=== PATIENT | male | born 1985 | race Hispanic/Latino ===

== ENCOUNTER 2018-02-25 16:00 | Outpatient (CLI) | payer OTHER | END 2018-02-25 16:01 | disposition home or self-care (01) | LOC: SLEEPLAB 16:00 | PROVIDERS: ATTEND Family Medicine | DX: G47.33 Obstructive sleep apnea (adult) (pediatric) (principal); R53.83 Other fatigue; E66.9 Obesity, unspecified; R06.83 Snoring; I10 Essential (primary) hypertension; Z68.41 Body mass index [BMI] 40.0-44.9, adult | CPT/HCPCS: 95806 ==

== ENCOUNTER 2018-09-03 22:08 | Emergency (ER) | payer OTHER ==
--- NOTE | 2018-09-03 22:28 | RAD ---
RIGHT THUMB 3 VIEWS: HISTORY: Right thumb pain, injury FINDINGS: No fracture or dislocation is identified.
== END 2018-09-03 23:55 | disposition home or self-care (01) ==
LOC: ERS 22:08
DX: M79.644 Pain in right finger(s) (principal); I10 Essential (primary) hypertension; E66.9 Obesity, unspecified; G47.30 Sleep apnea, unspecified; Z79.899 Other long term (current) drug therapy

== ENCOUNTER 2020-11-09 10:16 | Emergency (ER) | payer OTHER ==
[2020-11-09] MEDS ORDERED: diphenhydrAMINE 50 MG/ML VIAL ONE (12:04)
[2020-11-09] MEDS ORDERED: Metoclopramide HCl 10 MG/2 ML VIAL ONE (12:04)
[2020-11-09] MEDS ORDERED: Ondansetron PF 4 MG/2 ML Vial ONE (12:04)
[2020-11-09] MEDS ORDERED: methylPREDNISolone Sod Succ/PF 125 MG/2 ML VIAL ONE (12:04)
[2020-11-09] MEDS ORDERED: Ketorolac Tromethamine 30 MG/ML VIAL ONE (13:02)
[2020-11-09 13:06] LABS: ALT (SGPT) 24 U/L (8-55); AST (SGOT) 18 U/L (5-34); Albumin 4.3 g/dL (3.5-5.0); Alkaline Phosphatase 80 U/L (40-110); Anion Gap 12 mmol/L (10-20); BUN (Urea Nitrogen) 9 mg/dL (8.9-20.6); Bilirubin, Total 0.6 mg/dL (0.2-1.2); Calc. Creatinine Clearance 0 mL/min (70-130); Calcium 9.8 mg/dL (7.8-10.44); Carbon Dioxide 24 mmol/L (22-29); Chloride 103 mmol/L (98-107); Globulin 4.1 g/dL (2.4-3.5); Glucose 105 mg/dL (70-105); Lipase 18 U/L (8-78); Potassium 3.9 mmol/L (3.5-5.1); Protein, Total 8.4 g/dL (6.0-8.3); Sodium 135 mmol/L (136-145)
[2020-11-09 13:09] LABS: #Lymphocytes 1.7 thou/uL (1.20-3.40); #Monocytes 0.5 thou/uL (0.11-0.59); #Neutrophils 8.1 thou/uL (1.40-6.50); %Basophils 0.3 % (0.0-1.0); %Eosinophils 0.3 % (0.0-10.0); %Lymphocytes 16.4 % (21.0-51.0); %Monocytes 5.1 % (0.0-10.0); %Neutrophils 77.9 % (42.0-75.0); Hemoglobin 16.4 g/dL (14.0-18.0); Mean Corpuscular HGB CONC 35.5 g/dL (32.0-36.0); Mean Corpuscular Hemoglobin 29.7 pg (27.0-31.0); Mean Corpuscular Volume 83.7 fL (78.0-98.0); Mean Platelet Volume 8.9 fL (7.4-10.4); Platelet Count 248 thou/uL (130-400); RBC Distribution Width 12.7 % (11.5-14.5); Red Blood Cell (RBC) Count 5.51 mill/uL (4.70-6.10); White Blood Cell (WBC) Count 10.3 thou/uL (4.8-10.8)
== END 2020-11-09 14:28 | disposition home or self-care (01) ==
LOC: ERS 10:16
DX: R51.9 Headache, unspecified (principal); R11.2 Nausea with vomiting, unspecified; Z79.899 Other long term (current) drug therapy; I10 Essential (primary) hypertension; E66.9 Obesity, unspecified; G47.30 Sleep apnea, unspecified
CPT/HCPCS: 70450; 80053; 83690; 85025; 96365; 96375; J1200; J1885; J2405; J2765; J2930

== ENCOUNTER 2020-11-10 19:43 | Emergency (ER) | payer OTHER ==
[2020-11-10] MEDS ORDERED: Metoclopramide HCl 10 MG/2 ML VIAL ONE (21:39)
[2020-11-10] MEDS ORDERED: diphenhydrAMINE 50 MG/ML VIAL ONE (21:39)
[2020-11-10] MEDS ORDERED: Ketorolac Tromethamine 30 MG/ML VIAL ONE ×2 (21:39→21:40)
== END 2020-11-10 23:59 | disposition home or self-care (01) ==
LOC: ERS 19:43
DX: G43.909 Migraine, unspecified, not intractable, without status migrainosus (principal); E66.9 Obesity, unspecified; G47.30 Sleep apnea, unspecified; Z79.899 Other long term (current) drug therapy
CPT/HCPCS: 96365; 96367; 96375; J1200; J1885; J2765

== ENCOUNTER 2020-11-14 19:46 | Observation (INO) | payer BC, OTHER, SELFPAY ==
[~2020-11-14 19:46] MED LIST: Iopamidol-370 76% 500 ML 1 ML ONE
[2020-11-14] MEDS ORDERED: Ketorolac Tromethamine 30 MG/ML VIAL ONE (20:31)
[2020-11-14] MEDS ORDERED: diphenhydrAMINE 50 MG/ML VIAL ONE (20:31)
[2020-11-14] MEDS ORDERED: Metoclopramide HCl 10 MG/2 ML VIAL ONE (20:31)
[2020-11-14 21:34] LABS: #Eosinphils 0.1 thou/uL (0.0-0.7); #Lymphocytes 2.6 thou/uL (1.20-3.40); #Monocytes 1.3 thou/uL (0.11-0.59); #Neutrophils 11.3 thou/uL (1.40-6.50); %Basophils 0.3 % (0.0-1.0); %Eosinophils 0.6 % (0.0-10.0); %Monocytes 8.2 % (0.0-10.0); %Neutrophils 73.9 % (42.0-75.0); Hemoglobin 14.1 g/dL (14.0-18.0); Mean Corpuscular Hemoglobin 29.8 pg (27.0-31.0); Mean Platelet Volume 8.4 fL (7.4-10.4); Platelet Count 230 thou/uL (130-400); RBC Distribution Width 12.6 % (11.5-14.5); Red Blood Cell (RBC) Count 4.74 mill/uL (4.70-6.10); White Blood Cell (WBC) Count 15.3 thou/uL (4.8-10.8)
[2020-11-14 21:54] LABS: ALT (SGPT) 36 U/L (8-55); AST (SGOT) 19 U/L (5-34); Albumin 3.4 g/dL (3.5-5.0); Alkaline Phosphatase 69 U/L (40-110); Anion Gap 12 mmol/L (10-20); BUN (Urea Nitrogen) 14 mg/dL (8.9-20.6); Bilirubin, Total 0.3 mg/dL (0.2-1.2); Calc. Creatinine Clearance 0 mL/min (70-130); Calcium 8.2 mg/dL (7.8-10.44); Carbon Dioxide 21 mmol/L (22-29); Chloride 105 mmol/L (98-107); Globulin 3.1 g/dL (2.4-3.5); Glucose 100 mg/dL (70-105); Potassium 3.4 mmol/L (3.5-5.1); Protein, Total 6.5 g/dL (6.0-8.3); Sodium 135 mmol/L (136-145)
[2020-11-14] MEDS ORDERED: Magnesium 2 GM/50 ML BAG (IN WATER) ONE (22:03)
[2020-11-14] MEDS ORDERED: methylPREDNISolone Sod Succ/PF 125 MG/2 ML VIAL ONE (22:03)
[2020-11-14] MEDS ORDERED: Valproate Sodium 500 MG in Sodium Chloride 0.9% 100 ML IVPB SCH (22:15)
[2020-11-15 02:19] VITALS: BMI 44.1
[2020-11-15] MEDS ORDERED: Ondansetron PF 4 MG/2 ML Vial IVP PRN (03:04)
[2020-11-15] MEDS ORDERED: Ondansetron ODT 4 MG TAB PO PRN (03:04)
[2020-11-15] MEDS ORDERED: HYDROcodone/Acetaminophen 5/325 mg Tablet PO PRN (03:04)
[2020-11-15] MEDS ORDERED: Acetaminophen 325 MG TAB PO PRN (03:04)
[2020-11-15] MEDS ORDERED: Ketorolac Tromethamine 30 MG/ML VIAL IVP PRN (03:27)
[2020-11-15 06:22] LABS: #Lymphocytes 0.8 thou/uL (1.20-3.40); #Monocytes 0.1 thou/uL (0.11-0.59); #Neutrophils 11.3 thou/uL (1.40-6.50); %Basophils 0.3 % (0.0-1.0); %Eosinophils 0.1 % (0.0-10.0); %Lymphocytes 6.3 % (21.0-51.0); %Neutrophils 92.2 % (42.0-75.0); Hemoglobin 14.9 g/dL (14.0-18.0); Mean Corpuscular HGB CONC 32.6 g/dL (32.0-36.0); Mean Corpuscular Hemoglobin 27.9 pg (27.0-31.0); Mean Corpuscular Volume 85.6 fL (78.0-98.0); Mean Platelet Volume 8.8 fL (7.4-10.4); Platelet Count 252 thou/uL (130-400); RBC Distribution Width 12.6 % (11.5-14.5); Red Blood Cell (RBC) Count 5.35 mill/uL (4.70-6.10); White Blood Cell (WBC) Count 12.2 thou/uL (4.8-10.8)
[2020-11-15 06:45] LABS: Anion Gap 12 mmol/L (10-20); BUN (Urea Nitrogen) 11 mg/dL (8.9-20.6); Calc. Creatinine Clearance 191 mL/min (70-130); Calcium 8.5 mg/dL (7.8-10.44); Carbon Dioxide 21 mmol/L (22-29); Chloride 106 mmol/L (98-107); Glucose 149 mg/dL (70-105); Potassium 4.2 mmol/L (3.5-5.1); Sodium 135 mmol/L (136-145)
[2020-11-15 07:51] VITALS: BP 132/84; TEMP 98.1
[2020-11-15] MEDS ORDERED: Enoxaparin Sodium 40 MG/0.4 ML SYRINGE SC SCH (09:00)
[2020-11-15 10:53] LABS: SARS-CoV-2 PCR by NAA Not Detected (NotDetected)
[2020-11-15] MEDS ORDERED: Fioricet 325/50/40 mg Tablet PO PRN (12:57)
[2020-11-15] MEDS ORDERED: Metoclopramide 10 MG/10 ML UDCUP PO PRN (12:58)
== END 2020-11-15 19:00 | disposition home or self-care (01) ==
LOC: ERS 19:46 → T4-A 11-15 00:04
PROVIDERS: ADMIT Student in an Organized Health Care Education/Training Program; ATTEND Internal Medicine
DX: R51.9 Headache, unspecified (principal); H53.149 Visual discomfort, unspecified; I10 Essential (primary) hypertension; E66.01 Morbid (severe) obesity due to excess calories; Z68.41 Body mass index [BMI] 40.0-44.9, adult; Z20.822 Contact with and (suspected) exposure to COVID-19; Z79.899 Other long term (current) drug therapy
CPT/HCPCS: 36415; 70496; 70551; 80048; 80053; 85025; 96365; 96367; 96368; 96372; 96375; 96376; G0378; J1200; J1650; J1885; J2765; J2930; J3475; J3490; Q9967; U0003; U0005

== ENCOUNTER 2022-09-04 22:50 | Emergency (ER) | payer BC | END 2022-09-05 01:22 | disposition home or self-care (01) | LOC: ERS 22:50 | DX: M25.571 Pain in right ankle and joints of right foot (principal); I10 Essential (primary) hypertension ==

== ENCOUNTER 2022-09-21 10:09 | Outpatient (CLI) | payer BC | END 2022-09-21 10:10 | disposition home or self-care (01) | LOC: RAD 10:09 | PROVIDERS: ATTEND Nurse Practitioner Family | DX: I10 Essential (primary) hypertension (principal); R10.2 Pelvic and perineal pain | CPT/HCPCS: 72190 ==